=== PATIENT | female | born 1970 ===

== ENCOUNTER 2023-06-04 17:54 | Emergency (ER) | payer BC | END 2023-06-04 18:15 | disposition left against medical advice (07) | LOC: EDH 17:54 | DX: K92.2 Gastrointestinal hemorrhage, unspecified (principal); Z53.21 Procedure and treatment not carried out due to patient leaving prior to being seen by health care provider ==

== ENCOUNTER 2023-06-18 13:38 | Observation (INO) | payer BC ==
[~2023-06-18] VITALS: Ht 172.7 cm; Wt 70.4 kg
[2023-06-18] MEDS ORDERED: IOHEXOL-350 75 ML VIAL IV ONE (14:15)
[2023-06-18 15:05] LABS: BASOPHILS # (AUTO) 0.03 K/uL (0.00-0.20); BASOPHILS % (AUTO) 0.4 % (0.0-5.0); EOSINOPHILS # (AUTO) 0.11 K/uL (0.00-0.70); EOSINOPHILS % (AUTO) 1.6 % (0.0-8.0); HEMATOCRIT 39.2 % (36-48); IMMATURE GRANULOCYTE ABSOLUTE 0.02 K/uL (0-1); LYMPHOCYTES # (AUTO) 2.1 K/uL (1.0-4.8); LYMPHOCYTES % (AUTO) 30.7 % (21.0-51.0); MEAN CORPUSCULAR HEMOGLOBIN 28.1 pg (27.0-33.0); MEAN CORPUSCULAR HGB CONC 34.4 g/dL (32.0-36.0); MEAN CORPUSCULAR VOLUME 81.7 fL (79-99); MONOCYTES # (AUTO) 0.6 K/uL (0.1-1.0); MONOCYTES % (AUTO) 8.6 % (3.0-13.0); NEUTROPHILS % (AUTO) 58.4 % (40.0-77.0); PLATELET COUNT (AUTO) 223 K/uL (130-400); RED CELL DISTRIBUTION WIDTH 14.4 % (11.0-15.5); WHITE BLOOD COUNT (AUTO) 6.9 K/uL (4.8-10.8)
[2023-06-18] MEDS: DiphenhydrAMINE HCL 50 MG/ML VIAL IV ONE (15:07)
[2023-06-18 15:14] LABS: INR 1.03 (0.85-1.15); PROTHROMBIN TIME 12.1 SEC (9.6-11.6)
[2023-06-18 15:16] LABS: CREATININE 0.8 mg/dL (0.5-1.0); PARTIAL THROMBOPLASTIN TIME 26.4 SEC (26.3-35.5); POTASSIUM 4.1 mmol/L (3.5-5.1)
[2023-06-18 15:20] LABS: ALBUMIN 3.4 g/dL (3.5-5.0); BILIRUBIN,TOTAL 0.3 mg/dL (0.2-1.0)
[2023-06-18 15:34] LABS: B-TYPE NATRIURETIC PEPTIDE 60 pg/mL (0-100)
[2023-06-18] MEDS: ACETAMINOPHEN 325 MG TAB PO SCH (17:38)
[2023-06-18] MEDS: 0.9%NACL 1000ML 1,000 ML IV SCH (17:38)
[2023-06-18 17:40] LABS: THYROID STIMULATING HORMONE 2.06 uIU/mL (0.36-3.74)
[2023-06-18] MEDS ORDERED: ACETAMINOPHEN 325 MG TAB PO PRN (19:00)
[2023-06-18] MEDS ORDERED: GABA800T9 PO (19:02)
[2023-06-18] MEDS ORDERED: VENL75CA97 PO (19:02)
[2023-06-18] MEDS ORDERED: TAMS-1 (19:02)
[2023-06-18 19:18] LABS: APPEARANCE,URINE CLEAR (CLEAR); BILIRUBIN,URINE NEGATIVE (NEGATIVE); COLOR,URINE LIGHT-YELLOW (YELLOW); GLUCOSE, URINE (UA) NEGATIVE (NEGATIVE); KETONES,URINE NEGATIVE (NEGATIVE); LEUKOCYTE ESTERASE ,URINE NEGATIVE Leu/uL (NEGATIVE); NITRATE,URINE NEGATIVE (NEGATIVE); OCCULT BLOOD,URINE NEGATIVE (NEGATIVE); PROTEIN,URINE 10 mg/dL (NEGATIVE); UROBILINOGEN,URINE 0.2 mg/dL (0.2-1.0)
[2023-06-18 19:20] LABS: ADD UA MICROSCOPIC YES
[2023-06-18 19:21] LABS: MUCUS,URINE MOD LPF (None Seen); RBC,URINE 0-1 /HPF (0-1); SQUAMOUS EPITHELIAL CELL,UR FEW /HPF (0-2); WBC,URINE 0-1 /HPF (0-1)
[2023-06-18] MEDS ORDERED: PROM25TA7 PO (19:47)
[2023-06-18] MEDS ORDERED: CLON1TAB12 PO (19:47)
[2023-06-18] MEDS ORDERED: HYDR4 PO (19:47)
[2023-06-18] MEDS: TOPIRAMATE 25 MG TABLET PO SCH (20:29)
[2023-06-18] MEDS: GABAPENTIN PO SCH (21:00)
[2023-06-18] MEDS: HYDROMORPHONE 1 MG INJ IVP PRN (21:13)
[2023-06-18 22:23] VITALS: BP 119/78; PULSE 76; RESP 20
[2023-06-18 22:30] VITALS: O2SAT 98
[2023-06-18] MEDS: TAMSULOSIN HCL 0.4 MG CAP.ER.24H PO SCH (22:33)
[2023-06-18] MEDS: CLONAZEPAM 1MG TAB PO PRN (22:33)
[2023-06-19] VITALS: BP 110/59; PULSE 71; RESP 20
[2023-06-19 04:00] VITALS: BP_SYST 110; BP_SYST 96; BP_DIAS 59; BP_DIAS 63; PULSE 70; PULSE 71; RESP 20
[2023-06-19 05:28] LABS: BASOPHILS # (AUTO) 0.04 K/uL (0.00-0.20); BASOPHILS % (AUTO) 0.8 % (0.0-5.0); EOSINOPHILS # (AUTO) 0.17 K/uL (0.00-0.70); EOSINOPHILS % (AUTO) 3.3 % (0.0-8.0); HEMATOCRIT 43.2 % (36-48); IMMATURE GRANULOCYTE ABSOLUTE 0.02 K/uL (0-1); LYMPHOCYTES # (AUTO) 2.3 K/uL (1.0-4.8); MEAN CORPUSCULAR HEMOGLOBIN 27.8 pg (27.0-33.0); MEAN CORPUSCULAR HGB CONC 32.9 g/dL (32.0-36.0); MEAN CORPUSCULAR VOLUME 84.7 fL (79-99); MONOCYTES # (AUTO) 0.5 K/uL (0.1-1.0); MONOCYTES % (AUTO) 8.8 % (3.0-13.0); NEUTROPHILS # (AUTO) 2.2 K/uL (1.8-7.7); NEUTROPHILS % (AUTO) 42.7 % (40.0-77.0); PLATELET COUNT (AUTO) 144 K/uL (130-400); RED CELL DISTRIBUTION WIDTH 14.2 % (11.0-15.5); WHITE BLOOD COUNT (AUTO) 5.2 K/uL (4.8-10.8)
[2023-06-19 05:48] LABS: ALBUMIN 3.3 g/dL (3.5-5.0); BILIRUBIN,TOTAL 0.4 mg/dL (0.2-1.0); CREATININE 0.7 mg/dL (0.5-1.0); MAGNESIUM 2.1 mg/dL (1.80-2.40); POTASSIUM 3.7 mmol/L (3.5-5.1)
[2023-06-19 08:00] VITALS: BP 95/65; PULSE 66; RESP 20; O2SAT 100
[2023-06-19] MEDS ORDERED: TOPI25TA42 PO (08:07)
[2023-06-19] MEDS: VENLAFAXINE HCL PO SCH (08:32)
== END 2023-06-19 11:30 | disposition home or self-care (01) ==
LOC: EDH 13:38 → EDHIP 16:29 → INTOOBSV 16:29 → 2AH 18:34
PROVIDERS: ADMIT Internal Medicine; ATTEND Internal Medicine
DX: H54.62 Unqualified visual loss, left eye, normal vision right eye (principal); G43.109 Migraine with aura, not intractable, without status migrainosus; G90.A Postural orthostatic tachycardia syndrome [POTS]; M35.9 Systemic involvement of connective tissue, unspecified; M35.1 Other overlap syndromes; G89.29 Other chronic pain; M54.9 Dorsalgia, unspecified; G62.9 Polyneuropathy, unspecified; E87.1 Hypo-osmolality and hyponatremia; K21.9 Gastro-esophageal reflux disease without esophagitis; K44.9 Diaphragmatic hernia without obstruction or gangrene; I34.1 Nonrheumatic mitral (valve) prolapse; Z90.49 Acquired absence of other specified parts of digestive tract; Z86.2 Personal history of diseases of the blood and blood-forming organs and certain disorders involving the immune mechanism; Z79.899 Other long term (current) drug therapy; Z90.710 Acquired absence of both cervix and uterus; Z88.5 Allergy status to narcotic agent; Z88.8 Allergy status to other drugs, medicaments and biological substances
CPT/HCPCS: 96374; 96361 ×3; 96375; 99285; 84443; 82550; 83721; 83735 ×2; 84484 ×2; 80061; 80053 ×2; 83880; 85025 ×2; 85610; 85730; 85651; 86140; 81001; 36415 ×2; 71045; 70450; 70496; 70498; 70551; 93005; 84145; G0378 ×18; J1200; J1170; J7030; Q9967